=== PATIENT | female | born 1950 | race Caucasian/White ===

== ENCOUNTER 2017-04-20 08:40 | Outpatient (CLI) | payer OTHER ==
[~2017-04-20 08:40] MED LIST: ATENOLOL25 GM; CARDIZEM LA180 MG; ENALAPRIL MALEA10 MG; OSEL75CA; OSEL75CA PO; TRAMADOL HCL-AP1 TAB PO; XARELTO20 MG PO
== END 2017-04-20 08:46 | disposition home or self-care (01) ==
LOC: LAB 08:40
DX: I10 Essential (primary) hypertension (principal); E03.8 Other specified hypothyroidism; E78.4 Other hyperlipidemia; D64.89 Other specified anemias; D63.0 Anemia in neoplastic disease; C18.5 Malignant neoplasm of splenic flexure; J41.0 Simple chronic bronchitis; J45.20 Mild intermittent asthma, uncomplicated; I48.2 Chronic atrial fibrillation; Z79.01 Long term (current) use of anticoagulants; D61.810 Antineoplastic chemotherapy induced pancytopenia; Z92.21 Personal history of antineoplastic chemotherapy; C34.91 Malignant neoplasm of unspecified part of right bronchus or lung; N60.19 Diffuse cystic mastopathy of unspecified breast; D50.8 Other iron deficiency anemias; R97.0 Elevated carcinoembryonic antigen [CEA]; D64.81 Anemia due to antineoplastic chemotherapy

== ENCOUNTER 2017-04-22 13:02 | Outpatient (CLI) | payer OTHER | END 2017-04-22 13:05 | disposition home or self-care (01) | LOC: LAB 13:02 | DX: I10 Essential (primary) hypertension (principal); E03.8 Other specified hypothyroidism; E78.4 Other hyperlipidemia; D64.89 Other specified anemias; D63.0 Anemia in neoplastic disease; C18.5 Malignant neoplasm of splenic flexure; J41.0 Simple chronic bronchitis; J45.20 Mild intermittent asthma, uncomplicated; I48.2 Chronic atrial fibrillation; Z79.01 Long term (current) use of anticoagulants; D61.810 Antineoplastic chemotherapy induced pancytopenia; Z92.21 Personal history of antineoplastic chemotherapy; D64.81 Anemia due to antineoplastic chemotherapy; C34.91 Malignant neoplasm of unspecified part of right bronchus or lung; N60.19 Diffuse cystic mastopathy of unspecified breast; D50.8 Other iron deficiency anemias; R97.0 Elevated carcinoembryonic antigen [CEA] ==

== ENCOUNTER 2017-04-26 08:19 | Outpatient (CLI) | payer OTHER | END 2017-04-26 08:23 | disposition home or self-care (01) | LOC: LAB 08:19 | DX: C34.91 Malignant neoplasm of unspecified part of right bronchus or lung (principal); C18.5 Malignant neoplasm of splenic flexure; R97.0 Elevated carcinoembryonic antigen [CEA] ==

== ENCOUNTER 2017-05-09 09:11 | Outpatient (CLI) | payer OTHER | END 2017-05-09 09:15 | disposition home or self-care (01) | LOC: LAB 09:11 | DX: C18.5 Malignant neoplasm of splenic flexure (principal); C34.91 Malignant neoplasm of unspecified part of right bronchus or lung ==

== ENCOUNTER 2017-05-16 09:53 | Outpatient (CLI) | payer OTHER | END 2017-05-16 09:57 | disposition home or self-care (01) | LOC: LAB 09:53 | DX: D61.810 Antineoplastic chemotherapy induced pancytopenia (principal); C24.9 Malignant neoplasm of biliary tract, unspecified ==

== ENCOUNTER 2017-05-22 10:02 | Outpatient (CLI) | payer OTHER | END 2017-05-22 10:11 | disposition home or self-care (01) | LOC: LAB 10:02 | DX: D70.1 Agranulocytosis secondary to cancer chemotherapy (principal); C34.91 Malignant neoplasm of unspecified part of right bronchus or lung ==

== ENCOUNTER → 2017-05-28 12:24 | Outpatient (CLI) | payer OTHER | END | disposition home or self-care (01) | LOC: LAB 12:24 | DX: C34.91 Malignant neoplasm of unspecified part of right bronchus or lung (principal) ==

== ENCOUNTER 2017-06-08 09:35 | Outpatient (CLI) | payer OTHER | END 2017-06-08 09:43 | disposition home or self-care (01) | LOC: LAB 09:35 | DX: C34.91 Malignant neoplasm of unspecified part of right bronchus or lung (principal); C18.5 Malignant neoplasm of splenic flexure; R97.0 Elevated carcinoembryonic antigen [CEA]; Z85.038 Personal history of other malignant neoplasm of large intestine; D64.81 Anemia due to antineoplastic chemotherapy; D63.0 Anemia in neoplastic disease; T45.1X5A Adverse effect of antineoplastic and immunosuppressive drugs, initial encounter; L27.9 Dermatitis due to unspecified substance taken internally; J41.0 Simple chronic bronchitis; J45.20 Mild intermittent asthma, uncomplicated; I48.2 Chronic atrial fibrillation; Z79.01 Long term (current) use of anticoagulants; N60.19 Diffuse cystic mastopathy of unspecified breast; I10 Essential (primary) hypertension; E03.8 Other specified hypothyroidism; Z92.21 Personal history of antineoplastic chemotherapy; E78.4 Other hyperlipidemia; D69.59 Other secondary thrombocytopenia; D50.8 Other iron deficiency anemias; D51.8 Other vitamin B12 deficiency anemias ==

== ENCOUNTER 2017-06-19 10:58 | Outpatient (CLI) | payer OTHER | END 2017-06-19 11:03 | disposition home or self-care (01) | LOC: LAB 10:58 | DX: C34.91 Malignant neoplasm of unspecified part of right bronchus or lung (principal) ==

== ENCOUNTER 2017-06-29 08:59 | Outpatient (CLI) | payer OTHER | END 2017-06-29 09:06 | disposition home or self-care (01) | LOC: LAB 08:59 | DX: C34.91 Malignant neoplasm of unspecified part of right bronchus or lung (principal); C18.5 Malignant neoplasm of splenic flexure; D64.81 Anemia due to antineoplastic chemotherapy; D63.0 Anemia in neoplastic disease; T45.1X5A Adverse effect of antineoplastic and immunosuppressive drugs, initial encounter; L27.9 Dermatitis due to unspecified substance taken internally; J41.0 Simple chronic bronchitis; J45.20 Mild intermittent asthma, uncomplicated; I48.2 Chronic atrial fibrillation; I10 Essential (primary) hypertension; N60.19 Diffuse cystic mastopathy of unspecified breast; E03.8 Other specified hypothyroidism; E78.4 Other hyperlipidemia; D69.59 Other secondary thrombocytopenia; D70.1 Agranulocytosis secondary to cancer chemotherapy; R97.0 Elevated carcinoembryonic antigen [CEA]; Z85.038 Personal history of other malignant neoplasm of large intestine; Z92.21 Personal history of antineoplastic chemotherapy ==

== ENCOUNTER 2017-07-19 08:43 | Outpatient (CLI) | payer OTHER | END 2017-07-19 08:58 | disposition home or self-care (01) | LOC: LAB 08:43 | DX: C34.91 Malignant neoplasm of unspecified part of right bronchus or lung (principal); R82.79 Other abnormal findings on microbiological examination of urine; C18.5 Malignant neoplasm of splenic flexure; R97.0 Elevated carcinoembryonic antigen [CEA]; Z85.038 Personal history of other malignant neoplasm of large intestine; D64.81 Anemia due to antineoplastic chemotherapy; D63.0 Anemia in neoplastic disease; T45.1X5A Adverse effect of antineoplastic and immunosuppressive drugs, initial encounter; L27.9 Dermatitis due to unspecified substance taken internally; J41.0 Simple chronic bronchitis; J45.20 Mild intermittent asthma, uncomplicated; I48.2 Chronic atrial fibrillation; Z79.01 Long term (current) use of anticoagulants; N60.19 Diffuse cystic mastopathy of unspecified breast; I10 Essential (primary) hypertension; E03.8 Other specified hypothyroidism; Z92.21 Personal history of antineoplastic chemotherapy; D69.59 Other secondary thrombocytopenia; D70.1 Agranulocytosis secondary to cancer chemotherapy; D68.8 Other specified coagulation defects; I47.1 Supraventricular tachycardia; I48.91 Unspecified atrial fibrillation; E04.2 Nontoxic multinodular goiter; K57.30 Diverticulosis of large intestine without perforation or abscess without bleeding; K80.20 Calculus of gallbladder without cholecystitis without obstruction; N18.3 Chronic kidney disease, stage 3 (moderate); R31.9 Hematuria, unspecified; C34.90 Malignant neoplasm of unspecified part of unspecified bronchus or lung; M19.90 Unspecified osteoarthritis, unspecified site; M47.896 Other spondylosis, lumbar region; J44.9 Chronic obstructive pulmonary disease, unspecified; E55.9 Vitamin D deficiency, unspecified; E83.42 Hypomagnesemia; Z93.3 Colostomy status; Z68.34 Body mass index [BMI] 34.0-34.9, adult; N39.0 Urinary tract infection, site not specified; R73.01 Impaired fasting glucose; E78.4 Other hyperlipidemia; R80.8 Other proteinuria; C18.8 Malignant neoplasm of overlapping sites of colon ==

== ENCOUNTER 2017-08-14 08:27 | Outpatient (CLI) | payer OTHER | END 2017-08-14 15:45 | disposition home or self-care (01) | LOC: TOM 08:27 | DX: C34.91 Malignant neoplasm of unspecified part of right bronchus or lung (principal); C18.5 Malignant neoplasm of splenic flexure; R97.0 Elevated carcinoembryonic antigen [CEA]; Z85.038 Personal history of other malignant neoplasm of large intestine; D64.81 Anemia due to antineoplastic chemotherapy; D63.0 Anemia in neoplastic disease; T45.1X5A Adverse effect of antineoplastic and immunosuppressive drugs, initial encounter; L27.9 Dermatitis due to unspecified substance taken internally; J41.0 Simple chronic bronchitis; J45.20 Mild intermittent asthma, uncomplicated; I48.2 Chronic atrial fibrillation; Z79.01 Long term (current) use of anticoagulants; N60.19 Diffuse cystic mastopathy of unspecified breast; I10 Essential (primary) hypertension; E03.8 Other specified hypothyroidism; Z92.21 Personal history of antineoplastic chemotherapy; E78.4 Other hyperlipidemia; D69.59 Other secondary thrombocytopenia | CPT/HCPCS: 71260; Q9965 ==

== ENCOUNTER → 2017-08-15 | Outpatient (CLI) | payer OTHER | END | disposition home or self-care (01) | LOC: NUCLEAR 08-01 11:00 | DX: M81.0 Age-related osteoporosis without current pathological fracture (principal); I10 Essential (primary) hypertension; I47.1 Supraventricular tachycardia; I48.91 Unspecified atrial fibrillation; E04.2 Nontoxic multinodular goiter; E03.8 Other specified hypothyroidism; K57.30 Diverticulosis of large intestine without perforation or abscess without bleeding; K80.20 Calculus of gallbladder without cholecystitis without obstruction; R80.8 Other proteinuria; N18.3 Chronic kidney disease, stage 3 (moderate); R31.9 Hematuria, unspecified; C18.9 Malignant neoplasm of colon, unspecified; C34.90 Malignant neoplasm of unspecified part of unspecified bronchus or lung; M19.90 Unspecified osteoarthritis, unspecified site; M47.896 Other spondylosis, lumbar region; J44.9 Chronic obstructive pulmonary disease, unspecified; E55.9 Vitamin D deficiency, unspecified; Z93.3 Colostomy status; Z79.01 Long term (current) use of anticoagulants; Z68.37 Body mass index [BMI] 37.0-37.9, adult ==

== ENCOUNTER 2017-08-21 08:59 | Outpatient (CLI) | payer OTHER | END 2017-08-21 09:05 | disposition home or self-care (01) | LOC: LAB 08:59 | DX: C34.91 Malignant neoplasm of unspecified part of right bronchus or lung (principal); C18.5 Malignant neoplasm of splenic flexure; R97.0 Elevated carcinoembryonic antigen [CEA]; Z85.038 Personal history of other malignant neoplasm of large intestine; D64.81 Anemia due to antineoplastic chemotherapy; D63.0 Anemia in neoplastic disease; T45.1X5A Adverse effect of antineoplastic and immunosuppressive drugs, initial encounter; L27.8 Dermatitis due to other substances taken internally; J41.0 Simple chronic bronchitis; J45.20 Mild intermittent asthma, uncomplicated; I48.2 Chronic atrial fibrillation; Z79.01 Long term (current) use of anticoagulants; N60.19 Diffuse cystic mastopathy of unspecified breast; I10 Essential (primary) hypertension; E03.8 Other specified hypothyroidism; Z92.21 Personal history of antineoplastic chemotherapy; E78.4 Other hyperlipidemia; D69.59 Other secondary thrombocytopenia; D70.1 Agranulocytosis secondary to cancer chemotherapy; D50.8 Other iron deficiency anemias ==

== ENCOUNTER 2017-08-26 12:21 | Outpatient (CLI) | payer OTHER | END 2017-08-26 12:25 | disposition home or self-care (01) | LOC: LAB 12:21 | DX: C34.91 Malignant neoplasm of unspecified part of right bronchus or lung (principal); C18.5 Malignant neoplasm of splenic flexure; R97.0 Elevated carcinoembryonic antigen [CEA]; Z85.038 Personal history of other malignant neoplasm of large intestine; D64.81 Anemia due to antineoplastic chemotherapy; D63.0 Anemia in neoplastic disease; T45.1X5A Adverse effect of antineoplastic and immunosuppressive drugs, initial encounter; L27.9 Dermatitis due to unspecified substance taken internally; J41.0 Simple chronic bronchitis; J45.20 Mild intermittent asthma, uncomplicated; I48.2 Chronic atrial fibrillation; Z79.01 Long term (current) use of anticoagulants; N60.19 Diffuse cystic mastopathy of unspecified breast; I10 Essential (primary) hypertension; E03.8 Other specified hypothyroidism; Z92.21 Personal history of antineoplastic chemotherapy; D69.59 Other secondary thrombocytopenia; D70.1 Agranulocytosis secondary to cancer chemotherapy; E78.4 Other hyperlipidemia ==

== ENCOUNTER → 2017-09-04 12:38 | Outpatient (CLI) | payer OTHER | END | disposition home or self-care (01) | LOC: LAB 12:38 | DX: D64.81 Anemia due to antineoplastic chemotherapy (principal); C34.91 Malignant neoplasm of unspecified part of right bronchus or lung ==

== ENCOUNTER → 2017-09-24 08:24 | Outpatient (CLI) | payer OTHER | END | disposition home or self-care (01) | LOC: LAB 08:24 | DX: D64.81 Anemia due to antineoplastic chemotherapy (principal); D63.0 Anemia in neoplastic disease; C34.91 Malignant neoplasm of unspecified part of right bronchus or lung ==

== ENCOUNTER 2017-10-10 09:29 | Outpatient (CLI) | payer OTHER | END 2017-10-10 09:30 | disposition home or self-care (01) | LOC: LAB 09:29 | DX: C34.91 Malignant neoplasm of unspecified part of right bronchus or lung (principal); D64.81 Anemia due to antineoplastic chemotherapy ==

== ENCOUNTER 2017-10-19 09:10 | Outpatient (CLI) | payer OTHER | END 2017-10-19 09:16 | disposition home or self-care (01) | LOC: LAB 09:10 | DX: D64.81 Anemia due to antineoplastic chemotherapy (principal); C34.91 Malignant neoplasm of unspecified part of right bronchus or lung ==

== ENCOUNTER 2017-11-14 08:51 | Outpatient (CLI) | payer OTHER | END 2017-11-14 08:58 | disposition home or self-care (01) | LOC: LAB 08:51 | DX: C34.91 Malignant neoplasm of unspecified part of right bronchus or lung (principal); C18.5 Malignant neoplasm of splenic flexure; R97.0 Elevated carcinoembryonic antigen [CEA]; Z85.038 Personal history of other malignant neoplasm of large intestine; D64.81 Anemia due to antineoplastic chemotherapy; D63.0 Anemia in neoplastic disease; T45.1X5A Adverse effect of antineoplastic and immunosuppressive drugs, initial encounter; L27.8 Dermatitis due to other substances taken internally; J41.0 Simple chronic bronchitis; J45.20 Mild intermittent asthma, uncomplicated; I48.2 Chronic atrial fibrillation; Z79.01 Long term (current) use of anticoagulants; N60.12 Diffuse cystic mastopathy of left breast; N60.11 Diffuse cystic mastopathy of right breast; I10 Essential (primary) hypertension; E03.8 Other specified hypothyroidism; Z92.21 Personal history of antineoplastic chemotherapy; E78.4 Other hyperlipidemia; D70.1 Agranulocytosis secondary to cancer chemotherapy; D50.8 Other iron deficiency anemias; D51.8 Other vitamin B12 deficiency anemias ==

== ENCOUNTER 2017-12-04 07:44 | Outpatient (CLI) | payer OTHER | END 2017-12-04 07:51 | disposition home or self-care (01) | LOC: TOM 07:44 | DX: C34.91 Malignant neoplasm of unspecified part of right bronchus or lung (principal); C18.5 Malignant neoplasm of splenic flexure; R97.0 Elevated carcinoembryonic antigen [CEA]; Z85.038 Personal history of other malignant neoplasm of large intestine; D64.81 Anemia due to antineoplastic chemotherapy; D63.0 Anemia in neoplastic disease; T45.1X5A Adverse effect of antineoplastic and immunosuppressive drugs, initial encounter; L27.9 Dermatitis due to unspecified substance taken internally; J41.0 Simple chronic bronchitis; J45.20 Mild intermittent asthma, uncomplicated; I48.2 Chronic atrial fibrillation; Z79.01 Long term (current) use of anticoagulants; N60.19 Diffuse cystic mastopathy of unspecified breast; I10 Essential (primary) hypertension; E03.8 Other specified hypothyroidism; Z92.21 Personal history of antineoplastic chemotherapy; E78.4 Other hyperlipidemia; D69.59 Other secondary thrombocytopenia; D70.1 Agranulocytosis secondary to cancer chemotherapy | CPT/HCPCS: 71260; Q9965 ==

== ENCOUNTER 2017-12-07 09:12 | Outpatient (CLI) | payer OTHER | END 2017-12-07 09:17 | disposition home or self-care (01) | LOC: LAB 09:12 | DX: C34.91 Malignant neoplasm of unspecified part of right bronchus or lung (principal); C18.5 Malignant neoplasm of splenic flexure; R97.0 Elevated carcinoembryonic antigen [CEA]; Z85.038 Personal history of other malignant neoplasm of large intestine; D64.81 Anemia due to antineoplastic chemotherapy; D63.0 Anemia in neoplastic disease; T45.1X5A Adverse effect of antineoplastic and immunosuppressive drugs, initial encounter; L27.9 Dermatitis due to unspecified substance taken internally; J41.0 Simple chronic bronchitis; J45.20 Mild intermittent asthma, uncomplicated; I48.2 Chronic atrial fibrillation; Z79.01 Long term (current) use of anticoagulants; N60.19 Diffuse cystic mastopathy of unspecified breast; I10 Essential (primary) hypertension; E03.8 Other specified hypothyroidism; Z92.21 Personal history of antineoplastic chemotherapy; E78.4 Other hyperlipidemia; D69.59 Other secondary thrombocytopenia; D70.1 Agranulocytosis secondary to cancer chemotherapy; D50.8 Other iron deficiency anemias; D51.9 Vitamin B12 deficiency anemia, unspecified ==

== ENCOUNTER 2017-12-26 08:06 | Outpatient (CLI) | payer OTHER | END 2017-12-26 08:11 | disposition home or self-care (01) | LOC: RAD 08:06 | DX: J45.31 Mild persistent asthma with (acute) exacerbation (principal); C34.30 Malignant neoplasm of lower lobe, unspecified bronchus or lung ==

== ENCOUNTER 2018-01-31 10:23 | Outpatient (CLI) | payer OTHER | END 2018-01-31 10:30 | disposition home or self-care (01) | LOC: LAB 10:23 | DX: C34.91 Malignant neoplasm of unspecified part of right bronchus or lung (principal); C18.5 Malignant neoplasm of splenic flexure; R97.0 Elevated carcinoembryonic antigen [CEA]; Z85.038 Personal history of other malignant neoplasm of large intestine; D64.81 Anemia due to antineoplastic chemotherapy; D63.0 Anemia in neoplastic disease; T45.1X5A Adverse effect of antineoplastic and immunosuppressive drugs, initial encounter; L27.8 Dermatitis due to other substances taken internally; J41.0 Simple chronic bronchitis; J45.20 Mild intermittent asthma, uncomplicated; I48.2 Chronic atrial fibrillation; Z79.01 Long term (current) use of anticoagulants; N60.11 Diffuse cystic mastopathy of right breast; N60.12 Diffuse cystic mastopathy of left breast; I10 Essential (primary) hypertension; E03.8 Other specified hypothyroidism; Z92.21 Personal history of antineoplastic chemotherapy; E78.49 Other hyperlipidemia; D69.59 Other secondary thrombocytopenia; D70.1 Agranulocytosis secondary to cancer chemotherapy; D50.8 Other iron deficiency anemias ==

== ENCOUNTER 2018-02-18 12:16 | Outpatient (CLI) | payer OTHER | END 2018-02-18 12:21 | disposition home or self-care (01) | LOC: RAD 12:16 | DX: M54.2 Cervicalgia (principal); C34.91 Malignant neoplasm of unspecified part of right bronchus or lung; C18.5 Malignant neoplasm of splenic flexure; R97.0 Elevated carcinoembryonic antigen [CEA]; Z85.038 Personal history of other malignant neoplasm of large intestine; D64.81 Anemia due to antineoplastic chemotherapy; D63.0 Anemia in neoplastic disease; T45.1X5A Adverse effect of antineoplastic and immunosuppressive drugs, initial encounter; L27.8 Dermatitis due to other substances taken internally; J41.0 Simple chronic bronchitis; J45.20 Mild intermittent asthma, uncomplicated; I48.2 Chronic atrial fibrillation; Z79.01 Long term (current) use of anticoagulants; I10 Essential (primary) hypertension; E03.8 Other specified hypothyroidism; Z92.21 Personal history of antineoplastic chemotherapy; E78.49 Other hyperlipidemia; D69.59 Other secondary thrombocytopenia; D70.1 Agranulocytosis secondary to cancer chemotherapy ==

== ENCOUNTER 2018-03-17 09:48 | Outpatient (CLI) | payer OTHER | END 2018-03-17 09:57 | disposition home or self-care (01) | LOC: LAB 09:48 | DX: C34.91 Malignant neoplasm of unspecified part of right bronchus or lung (principal); C18.5 Malignant neoplasm of splenic flexure; R97.0 Elevated carcinoembryonic antigen [CEA]; Z85.038 Personal history of other malignant neoplasm of large intestine; D64.81 Anemia due to antineoplastic chemotherapy; D63.0 Anemia in neoplastic disease; T45.1X5A Adverse effect of antineoplastic and immunosuppressive drugs, initial encounter; L27.9 Dermatitis due to unspecified substance taken internally; J41.0 Simple chronic bronchitis; J45.20 Mild intermittent asthma, uncomplicated; I48.2 Chronic atrial fibrillation; Z79.01 Long term (current) use of anticoagulants; I10 Essential (primary) hypertension; Z92.21 Personal history of antineoplastic chemotherapy; D69.59 Other secondary thrombocytopenia; D70.1 Agranulocytosis secondary to cancer chemotherapy; E03.8 Other specified hypothyroidism; E78.49 Other hyperlipidemia; N64.89 Other specified disorders of breast ==

== ENCOUNTER 2018-04-10 08:32 | Outpatient (CLI) | payer OTHER | END 2018-04-10 08:38 | disposition home or self-care (01) | LOC: LAB 08:32 | DX: C34.91 Malignant neoplasm of unspecified part of right bronchus or lung (principal); C18.5 Malignant neoplasm of splenic flexure; R97.0 Elevated carcinoembryonic antigen [CEA]; Z85.038 Personal history of other malignant neoplasm of large intestine; D64.81 Anemia due to antineoplastic chemotherapy; D63.0 Anemia in neoplastic disease; T45.1X5A Adverse effect of antineoplastic and immunosuppressive drugs, initial encounter; L27.8 Dermatitis due to other substances taken internally; J41.0 Simple chronic bronchitis; J45.20 Mild intermittent asthma, uncomplicated; I48.2 Chronic atrial fibrillation; Z79.01 Long term (current) use of anticoagulants; N60.11 Diffuse cystic mastopathy of right breast; N60.12 Diffuse cystic mastopathy of left breast; I10 Essential (primary) hypertension; E03.8 Other specified hypothyroidism; Z92.21 Personal history of antineoplastic chemotherapy; E78.49 Other hyperlipidemia; D69.59 Other secondary thrombocytopenia; D70.1 Agranulocytosis secondary to cancer chemotherapy; D50.8 Other iron deficiency anemias; D51.8 Other vitamin B12 deficiency anemias ==

== ENCOUNTER 2018-04-25 08:31 | Outpatient (CLI) | payer OTHER | END 2018-04-25 08:47 | disposition home or self-care (01) | LOC: LAB 08:31 | DX: I10 Essential (primary) hypertension (principal); I47.1 Supraventricular tachycardia; I48.91 Unspecified atrial fibrillation; E04.2 Nontoxic multinodular goiter; E03.8 Other specified hypothyroidism; K57.30 Diverticulosis of large intestine without perforation or abscess without bleeding; K80.20 Calculus of gallbladder without cholecystitis without obstruction; R80.8 Other proteinuria; N18.3 Chronic kidney disease, stage 3 (moderate); R31.9 Hematuria, unspecified; C18.8 Malignant neoplasm of overlapping sites of colon; C34.90 Malignant neoplasm of unspecified part of unspecified bronchus or lung; M19.90 Unspecified osteoarthritis, unspecified site; M47.896 Other spondylosis, lumbar region; J44.9 Chronic obstructive pulmonary disease, unspecified; E55.9 Vitamin D deficiency, unspecified; E83.42 Hypomagnesemia; Z93.3 Colostomy status; Z68.32 Body mass index [BMI] 32.0-32.9, adult; Z79.01 Long term (current) use of anticoagulants; E78.2 Mixed hyperlipidemia ==

== ENCOUNTER 2018-05-20 07:09 | Outpatient (CLI) | payer OTHER | END 2018-05-20 07:15 | disposition home or self-care (01) | LOC: LAB 07:09 | DX: C34.91 Malignant neoplasm of unspecified part of right bronchus or lung (principal); C18.5 Malignant neoplasm of splenic flexure; R97.0 Elevated carcinoembryonic antigen [CEA]; Z85.038 Personal history of other malignant neoplasm of large intestine; D64.81 Anemia due to antineoplastic chemotherapy; D63.0 Anemia in neoplastic disease; T45.1X5A Adverse effect of antineoplastic and immunosuppressive drugs, initial encounter; L27.9 Dermatitis due to unspecified substance taken internally; J41.0 Simple chronic bronchitis; J45.20 Mild intermittent asthma, uncomplicated; I48.2 Chronic atrial fibrillation; Z79.01 Long term (current) use of anticoagulants; N60.19 Diffuse cystic mastopathy of unspecified breast; I10 Essential (primary) hypertension; E03.8 Other specified hypothyroidism; Z92.21 Personal history of antineoplastic chemotherapy; E78.5 Hyperlipidemia, unspecified; D69.59 Other secondary thrombocytopenia; D70.1 Agranulocytosis secondary to cancer chemotherapy; R97.8 Other abnormal tumor markers; D50.8 Other iron deficiency anemias; D51.8 Other vitamin B12 deficiency anemias ==

== ENCOUNTER 2018-06-10 08:19 | Outpatient (CLI) | payer OTHER | END 2018-06-10 08:34 | disposition home or self-care (01) | LOC: LAB 08:19 | DX: C34.91 Malignant neoplasm of unspecified part of right bronchus or lung (principal); C18.5 Malignant neoplasm of splenic flexure; R97.0 Elevated carcinoembryonic antigen [CEA]; Z85.038 Personal history of other malignant neoplasm of large intestine; D64.81 Anemia due to antineoplastic chemotherapy; D63.0 Anemia in neoplastic disease; T45.1X5A Adverse effect of antineoplastic and immunosuppressive drugs, initial encounter; L27.9 Dermatitis due to unspecified substance taken internally; J41.0 Simple chronic bronchitis; J45.20 Mild intermittent asthma, uncomplicated; I48.2 Chronic atrial fibrillation; Z79.01 Long term (current) use of anticoagulants; N60.19 Diffuse cystic mastopathy of unspecified breast; I10 Essential (primary) hypertension; E03.8 Other specified hypothyroidism; Z92.21 Personal history of antineoplastic chemotherapy; D69.59 Other secondary thrombocytopenia; D70.1 Agranulocytosis secondary to cancer chemotherapy; E78.49 Other hyperlipidemia ==

== ENCOUNTER 2018-06-20 08:15 | Outpatient (CLI) | payer OTHER | END 2018-06-20 14:55 | disposition home or self-care (01) | LOC: LAB 08:15 | DX: C34.91 Malignant neoplasm of unspecified part of right bronchus or lung (principal); D63.0 Anemia in neoplastic disease ==

== ENCOUNTER 2018-07-02 08:29 | Outpatient (CLI) | payer OTHER | END 2018-07-02 08:37 | disposition home or self-care (01) | LOC: LAB 08:29 | DX: C34.91 Malignant neoplasm of unspecified part of right bronchus or lung (principal); C18.5 Malignant neoplasm of splenic flexure; R97.0 Elevated carcinoembryonic antigen [CEA]; Z85.038 Personal history of other malignant neoplasm of large intestine; D64.81 Anemia due to antineoplastic chemotherapy; D63.0 Anemia in neoplastic disease; T45.1X5A Adverse effect of antineoplastic and immunosuppressive drugs, initial encounter; L27.8 Dermatitis due to other substances taken internally; J41.0 Simple chronic bronchitis; J45.20 Mild intermittent asthma, uncomplicated; I48.2 Chronic atrial fibrillation; Z79.01 Long term (current) use of anticoagulants; N60.19 Diffuse cystic mastopathy of unspecified breast; I10 Essential (primary) hypertension; E03.8 Other specified hypothyroidism; Z92.21 Personal history of antineoplastic chemotherapy; E78.49 Other hyperlipidemia; D69.59 Other secondary thrombocytopenia; D70.1 Agranulocytosis secondary to cancer chemotherapy; R97.8 Other abnormal tumor markers ==

== ENCOUNTER 2018-07-17 08:29 | Outpatient (CLI) | payer OTHER | END 2018-07-17 08:30 | disposition home or self-care (01) | LOC: LAB 08:29 | DX: E03.8 Other specified hypothyroidism (principal); C34.91 Malignant neoplasm of unspecified part of right bronchus or lung; C18.5 Malignant neoplasm of splenic flexure; R97.0 Elevated carcinoembryonic antigen [CEA]; Z85.038 Personal history of other malignant neoplasm of large intestine; D64.81 Anemia due to antineoplastic chemotherapy; D63.0 Anemia in neoplastic disease; T45.1X5A Adverse effect of antineoplastic and immunosuppressive drugs, initial encounter; L27.9 Dermatitis due to unspecified substance taken internally; J41.0 Simple chronic bronchitis; J45.20 Mild intermittent asthma, uncomplicated; I48.2 Chronic atrial fibrillation; Z79.01 Long term (current) use of anticoagulants; N60.19 Diffuse cystic mastopathy of unspecified breast; I10 Essential (primary) hypertension; Z92.21 Personal history of antineoplastic chemotherapy; E78.49 Other hyperlipidemia; D69.59 Other secondary thrombocytopenia; D70.1 Agranulocytosis secondary to cancer chemotherapy; D50.8 Other iron deficiency anemias; D51.8 Other vitamin B12 deficiency anemias; K90.89 Other intestinal malabsorption ==

== ENCOUNTER 2018-07-29 08:09 | Outpatient (CLI) | payer OTHER | END 2018-07-29 08:25 | disposition home or self-care (01) | LOC: LAB 08:09 | DX: I47.1 Supraventricular tachycardia (principal); I10 Essential (primary) hypertension; I48.91 Unspecified atrial fibrillation; E04.2 Nontoxic multinodular goiter; E03.8 Other specified hypothyroidism; K57.30 Diverticulosis of large intestine without perforation or abscess without bleeding; K80.20 Calculus of gallbladder without cholecystitis without obstruction; R80.8 Other proteinuria; N18.3 Chronic kidney disease, stage 3 (moderate); R31.9 Hematuria, unspecified; C18.9 Malignant neoplasm of colon, unspecified; C34.90 Malignant neoplasm of unspecified part of unspecified bronchus or lung; M19.90 Unspecified osteoarthritis, unspecified site; M47.896 Other spondylosis, lumbar region; J44.9 Chronic obstructive pulmonary disease, unspecified; E55.9 Vitamin D deficiency, unspecified; Z93.3 Colostomy status; Z79.01 Long term (current) use of anticoagulants; Z68.32 Body mass index [BMI] 32.0-32.9, adult; N39.0 Urinary tract infection, site not specified ==

== ENCOUNTER 2018-08-14 07:59 | Outpatient (CLI) | payer OTHER | END 2018-08-14 08:06 | disposition home or self-care (01) | LOC: LAB 07:59 | DX: C34.91 Malignant neoplasm of unspecified part of right bronchus or lung (principal); C18.5 Malignant neoplasm of splenic flexure; R97.0 Elevated carcinoembryonic antigen [CEA]; Z85.038 Personal history of other malignant neoplasm of large intestine; D64.81 Anemia due to antineoplastic chemotherapy; D63.0 Anemia in neoplastic disease; T45.1X5A Adverse effect of antineoplastic and immunosuppressive drugs, initial encounter; L27.9 Dermatitis due to unspecified substance taken internally; J41.0 Simple chronic bronchitis; J45.20 Mild intermittent asthma, uncomplicated; I48.2 Chronic atrial fibrillation; Z79.01 Long term (current) use of anticoagulants; N60.19 Diffuse cystic mastopathy of unspecified breast; I10 Essential (primary) hypertension; E03.8 Other specified hypothyroidism; Z92.21 Personal history of antineoplastic chemotherapy; E78.49 Other hyperlipidemia; D69.59 Other secondary thrombocytopenia; D70.1 Agranulocytosis secondary to cancer chemotherapy; D50.8 Other iron deficiency anemias ==

== ENCOUNTER → 2018-09-24 09:01 | Outpatient (CLI) | payer OTHER | END | disposition home or self-care (01) | LOC: LAB 09:01 | DX: E03.8 Other specified hypothyroidism (principal); C34.91 Malignant neoplasm of unspecified part of right bronchus or lung; C18.5 Malignant neoplasm of splenic flexure; R97.0 Elevated carcinoembryonic antigen [CEA]; Z85.038 Personal history of other malignant neoplasm of large intestine; D64.81 Anemia due to antineoplastic chemotherapy; D63.0 Anemia in neoplastic disease; T45.1X5A Adverse effect of antineoplastic and immunosuppressive drugs, initial encounter; L27.8 Dermatitis due to other substances taken internally; J41.0 Simple chronic bronchitis; J45.20 Mild intermittent asthma, uncomplicated; I48.2 Chronic atrial fibrillation; Z79.01 Long term (current) use of anticoagulants; N60.19 Diffuse cystic mastopathy of unspecified breast; I10 Essential (primary) hypertension; Z92.21 Personal history of antineoplastic chemotherapy; E78.49 Other hyperlipidemia; D69.59 Other secondary thrombocytopenia; D70.1 Agranulocytosis secondary to cancer chemotherapy ==

== ENCOUNTER → 2018-10-14 09:25 | Outpatient (CLI) | payer OTHER | END | disposition home or self-care (01) | LOC: LAB 09:25 | DX: E03.8 Other specified hypothyroidism (principal); C34.91 Malignant neoplasm of unspecified part of right bronchus or lung; C18.5 Malignant neoplasm of splenic flexure; R97.0 Elevated carcinoembryonic antigen [CEA]; Z85.038 Personal history of other malignant neoplasm of large intestine; D64.81 Anemia due to antineoplastic chemotherapy; D63.0 Anemia in neoplastic disease; T45.1X5A Adverse effect of antineoplastic and immunosuppressive drugs, initial encounter; L27.8 Dermatitis due to other substances taken internally; J41.0 Simple chronic bronchitis; J45.20 Mild intermittent asthma, uncomplicated; I48.2 Chronic atrial fibrillation; Z79.01 Long term (current) use of anticoagulants; N60.19 Diffuse cystic mastopathy of unspecified breast; I10 Essential (primary) hypertension; Z92.21 Personal history of antineoplastic chemotherapy; E78.49 Other hyperlipidemia; D69.59 Other secondary thrombocytopenia; D70.1 Agranulocytosis secondary to cancer chemotherapy; D50.8 Other iron deficiency anemias; D51.8 Other vitamin B12 deficiency anemias ==

== ENCOUNTER 2018-10-28 10:13 | Outpatient (CLI) | payer OTHER | END 2018-10-28 10:20 | disposition home or self-care (01) | LOC: MAMO-SONO 10:13 | DX: C34.91 Malignant neoplasm of unspecified part of right bronchus or lung (principal); C18.5 Malignant neoplasm of splenic flexure; R97.0 Elevated carcinoembryonic antigen [CEA]; Z85.038 Personal history of other malignant neoplasm of large intestine; D64.81 Anemia due to antineoplastic chemotherapy; D63.0 Anemia in neoplastic disease; T45.1X5A Adverse effect of antineoplastic and immunosuppressive drugs, initial encounter; L27.8 Dermatitis due to other substances taken internally; J41.0 Simple chronic bronchitis; J45.20 Mild intermittent asthma, uncomplicated; I48.2 Chronic atrial fibrillation; Z79.01 Long term (current) use of anticoagulants; N60.19 Diffuse cystic mastopathy of unspecified breast; I10 Essential (primary) hypertension; E03.8 Other specified hypothyroidism; Z92.21 Personal history of antineoplastic chemotherapy; E78.49 Other hyperlipidemia; D69.59 Other secondary thrombocytopenia; D70.1 Agranulocytosis secondary to cancer chemotherapy; Z12.31 Encounter for screening mammogram for malignant neoplasm of breast; N63.10 Unspecified lump in the right breast, unspecified quadrant; N63.20 Unspecified lump in the left breast, unspecified quadrant; Z87.898 Personal history of other specified conditions ==

== ENCOUNTER 2018-11-06 07:58 | Outpatient (CLI) | payer OTHER | END 2018-11-06 08:06 | disposition home or self-care (01) | LOC: LAB 07:58 | DX: E78.49 Other hyperlipidemia (principal); C34.91 Malignant neoplasm of unspecified part of right bronchus or lung; C18.5 Malignant neoplasm of splenic flexure; R97.0 Elevated carcinoembryonic antigen [CEA]; Z85.038 Personal history of other malignant neoplasm of large intestine; D64.81 Anemia due to antineoplastic chemotherapy; D63.0 Anemia in neoplastic disease; T45.1X5A Adverse effect of antineoplastic and immunosuppressive drugs, initial encounter; L27.9 Dermatitis due to unspecified substance taken internally; J41.0 Simple chronic bronchitis; J45.20 Mild intermittent asthma, uncomplicated; I48.2 Chronic atrial fibrillation; Z79.01 Long term (current) use of anticoagulants; N60.19 Diffuse cystic mastopathy of unspecified breast; I10 Essential (primary) hypertension; E03.8 Other specified hypothyroidism; Z92.21 Personal history of antineoplastic chemotherapy; D69.59 Other secondary thrombocytopenia; D70.1 Agranulocytosis secondary to cancer chemotherapy; N63.10 Unspecified lump in the right breast, unspecified quadrant; N63.20 Unspecified lump in the left breast, unspecified quadrant; Z12.31 Encounter for screening mammogram for malignant neoplasm of breast; R97.8 Other abnormal tumor markers ==

== ENCOUNTER 2018-11-28 07:56 | Outpatient (CLI) | payer OTHER | END 2018-11-28 08:04 | disposition home or self-care (01) | LOC: LAB 07:56 | DX: I10 Essential (primary) hypertension (principal); I47.1 Supraventricular tachycardia; I48.91 Unspecified atrial fibrillation; E04.2 Nontoxic multinodular goiter; E03.8 Other specified hypothyroidism; K57.30 Diverticulosis of large intestine without perforation or abscess without bleeding; K80.20 Calculus of gallbladder without cholecystitis without obstruction; R80.8 Other proteinuria; R31.29 Other microscopic hematuria; C18.9 Malignant neoplasm of colon, unspecified; C34.90 Malignant neoplasm of unspecified part of unspecified bronchus or lung; M19.90 Unspecified osteoarthritis, unspecified site; M47.896 Other spondylosis, lumbar region; J44.9 Chronic obstructive pulmonary disease, unspecified; E55.9 Vitamin D deficiency, unspecified; Z93.3 Colostomy status; Z79.01 Long term (current) use of anticoagulants; Z68.33 Body mass index [BMI] 33.0-33.9, adult; E53.8 Deficiency of other specified B group vitamins; N39.0 Urinary tract infection, site not specified ==

== ENCOUNTER 2018-12-12 08:44 | Outpatient (CLI) | payer OTHER | END 2018-12-12 08:53 | disposition home or self-care (01) | LOC: LAB 08:44 | DX: C34.91 Malignant neoplasm of unspecified part of right bronchus or lung (principal); C18.5 Malignant neoplasm of splenic flexure; R97.0 Elevated carcinoembryonic antigen [CEA]; Z85.038 Personal history of other malignant neoplasm of large intestine; D64.81 Anemia due to antineoplastic chemotherapy; D63.0 Anemia in neoplastic disease; T45.1X5A Adverse effect of antineoplastic and immunosuppressive drugs, initial encounter; L27.9 Dermatitis due to unspecified substance taken internally; J41.0 Simple chronic bronchitis; J45.20 Mild intermittent asthma, uncomplicated; I48.2 Chronic atrial fibrillation; Z79.01 Long term (current) use of anticoagulants; N60.19 Diffuse cystic mastopathy of unspecified breast; I10 Essential (primary) hypertension; E03.8 Other specified hypothyroidism; Z92.21 Personal history of antineoplastic chemotherapy; E78.49 Other hyperlipidemia; D69.59 Other secondary thrombocytopenia; D70.1 Agranulocytosis secondary to cancer chemotherapy ==

== ENCOUNTER → 2018-12-24 | Outpatient (CLI) | payer OTHER | END | disposition home or self-care (01) | LOC: TOM 08:15 | DX: C34.91 Malignant neoplasm of unspecified part of right bronchus or lung (principal); C18.5 Malignant neoplasm of splenic flexure; R97.0 Elevated carcinoembryonic antigen [CEA]; Z85.038 Personal history of other malignant neoplasm of large intestine; D64.81 Anemia due to antineoplastic chemotherapy; D63.0 Anemia in neoplastic disease; T45.1X5A Adverse effect of antineoplastic and immunosuppressive drugs, initial encounter; L27.8 Dermatitis due to other substances taken internally; J41.0 Simple chronic bronchitis; J45.20 Mild intermittent asthma, uncomplicated; I48.2 Chronic atrial fibrillation; Z79.01 Long term (current) use of anticoagulants; N60.11 Diffuse cystic mastopathy of right breast; I10 Essential (primary) hypertension; E03.8 Other specified hypothyroidism; Z92.21 Personal history of antineoplastic chemotherapy; D70.1 Agranulocytosis secondary to cancer chemotherapy; Z08 Encounter for follow-up examination after completed treatment for malignant neoplasm | CPT/HCPCS: 71260; Q9965 ==

== ENCOUNTER 2019-01-08 08:51 | Outpatient (CLI) | payer OTHER | END 2019-01-08 09:59 | disposition home or self-care (01) | LOC: LAB 08:51 | DX: C34.91 Malignant neoplasm of unspecified part of right bronchus or lung (principal); C18.5 Malignant neoplasm of splenic flexure; R97.0 Elevated carcinoembryonic antigen [CEA]; Z85.038 Personal history of other malignant neoplasm of large intestine; D64.81 Anemia due to antineoplastic chemotherapy; D63.0 Anemia in neoplastic disease; T45.1X5A Adverse effect of antineoplastic and immunosuppressive drugs, initial encounter; L27.9 Dermatitis due to unspecified substance taken internally; J41.0 Simple chronic bronchitis; J45.20 Mild intermittent asthma, uncomplicated; Z79.01 Long term (current) use of anticoagulants; N60.19 Diffuse cystic mastopathy of unspecified breast; I10 Essential (primary) hypertension; E03.8 Other specified hypothyroidism; Z92.21 Personal history of antineoplastic chemotherapy; E78.49 Other hyperlipidemia; D69.59 Other secondary thrombocytopenia; D70.1 Agranulocytosis secondary to cancer chemotherapy ==

== ENCOUNTER 2019-01-22 07:46 | Outpatient (CLI) | payer OTHER | END 2019-01-22 07:51 | disposition home or self-care (01) | LOC: LAB 07:46 | DX: C34.91 Malignant neoplasm of unspecified part of right bronchus or lung (principal); C18.5 Malignant neoplasm of splenic flexure; R97.0 Elevated carcinoembryonic antigen [CEA]; Z85.038 Personal history of other malignant neoplasm of large intestine; D64.81 Anemia due to antineoplastic chemotherapy; D63.0 Anemia in neoplastic disease; T45.1X5A Adverse effect of antineoplastic and immunosuppressive drugs, initial encounter; L27.8 Dermatitis due to other substances taken internally; J41.0 Simple chronic bronchitis; J45.20 Mild intermittent asthma, uncomplicated; Z79.01 Long term (current) use of anticoagulants; N60.19 Diffuse cystic mastopathy of unspecified breast; I10 Essential (primary) hypertension; E03.8 Other specified hypothyroidism; Z92.21 Personal history of antineoplastic chemotherapy; E78.49 Other hyperlipidemia; D69.59 Other secondary thrombocytopenia; D70.1 Agranulocytosis secondary to cancer chemotherapy; D50.8 Other iron deficiency anemias; D51.8 Other vitamin B12 deficiency anemias ==

== ENCOUNTER 2019-02-13 06:56 | Outpatient (CLI) | payer OTHER | END 2019-02-13 07:03 | disposition home or self-care (01) | LOC: LAB 06:56 | DX: C34.91 Malignant neoplasm of unspecified part of right bronchus or lung (principal); C18.5 Malignant neoplasm of splenic flexure; R97.0 Elevated carcinoembryonic antigen [CEA]; Z85.038 Personal history of other malignant neoplasm of large intestine; D64.81 Anemia due to antineoplastic chemotherapy; D63.0 Anemia in neoplastic disease; T45.1X5A Adverse effect of antineoplastic and immunosuppressive drugs, initial encounter; L27.8 Dermatitis due to other substances taken internally; J41.0 Simple chronic bronchitis; J45.20 Mild intermittent asthma, uncomplicated; Z79.01 Long term (current) use of anticoagulants; N60.19 Diffuse cystic mastopathy of unspecified breast; I10 Essential (primary) hypertension; E03.8 Other specified hypothyroidism; Z92.21 Personal history of antineoplastic chemotherapy; E78.49 Other hyperlipidemia; D69.59 Other secondary thrombocytopenia; D70.1 Agranulocytosis secondary to cancer chemotherapy; D50.8 Other iron deficiency anemias ==

== ENCOUNTER 2019-04-10 08:43 | Outpatient (CLI) | payer OTHER | END 2019-04-10 13:41 | disposition home or self-care (01) | LOC: LAB 08:43 | DX: C34.91 Malignant neoplasm of unspecified part of right bronchus or lung (principal); C18.5 Malignant neoplasm of splenic flexure; R97.0 Elevated carcinoembryonic antigen [CEA]; Z85.038 Personal history of other malignant neoplasm of large intestine; D64.81 Anemia due to antineoplastic chemotherapy; D63.0 Anemia in neoplastic disease; T45.1X5A Adverse effect of antineoplastic and immunosuppressive drugs, initial encounter; L27.8 Dermatitis due to other substances taken internally; J41.0 Simple chronic bronchitis; J45.20 Mild intermittent asthma, uncomplicated; I48.21 Permanent atrial fibrillation; Z79.01 Long term (current) use of anticoagulants; N60.19 Diffuse cystic mastopathy of unspecified breast; I10 Essential (primary) hypertension; E03.8 Other specified hypothyroidism; Z92.21 Personal history of antineoplastic chemotherapy; E78.49 Other hyperlipidemia; D69.59 Other secondary thrombocytopenia; D70.1 Agranulocytosis secondary to cancer chemotherapy; I47.1 Supraventricular tachycardia; I48.91 Unspecified atrial fibrillation; E04.2 Nontoxic multinodular goiter; K57.30 Diverticulosis of large intestine without perforation or abscess without bleeding; K80.20 Calculus of gallbladder without cholecystitis without obstruction; R80.8 Other proteinuria; R31.29 Other microscopic hematuria; C18.8 Malignant neoplasm of overlapping sites of colon; C34.90 Malignant neoplasm of unspecified part of unspecified bronchus or lung; M19.90 Unspecified osteoarthritis, unspecified site; M85.88 Other specified disorders of bone density and structure, other site; E55.9 Vitamin D deficiency, unspecified; Z93.3 Colostomy status; Z68.34 Body mass index [BMI] 34.0-34.9, adult; N39.0 Urinary tract infection, site not specified ==

== ENCOUNTER → 2019-05-22 09:40 | Outpatient (CLI) | payer OTHER | END | disposition home or self-care (01) | LOC: LAB 09:40 | DX: C34.91 Malignant neoplasm of unspecified part of right bronchus or lung (principal); C18.5 Malignant neoplasm of splenic flexure; R97.0 Elevated carcinoembryonic antigen [CEA]; Z85.038 Personal history of other malignant neoplasm of large intestine; D64.81 Anemia due to antineoplastic chemotherapy; D63.0 Anemia in neoplastic disease; T45.1X5A Adverse effect of antineoplastic and immunosuppressive drugs, initial encounter; L27.8 Dermatitis due to other substances taken internally; J41.0 Simple chronic bronchitis; J45.20 Mild intermittent asthma, uncomplicated; I48.20 Chronic atrial fibrillation, unspecified; Z79.01 Long term (current) use of anticoagulants; N60.11 Diffuse cystic mastopathy of right breast; N60.12 Diffuse cystic mastopathy of left breast; I10 Essential (primary) hypertension; E03.8 Other specified hypothyroidism; Z92.21 Personal history of antineoplastic chemotherapy; E78.49 Other hyperlipidemia; D69.59 Other secondary thrombocytopenia; D70.1 Agranulocytosis secondary to cancer chemotherapy ==

== ENCOUNTER 2019-07-08 07:42 | Outpatient (CLI) | payer OTHER | END 2019-07-08 08:00 | disposition home or self-care (01) | LOC: LAB 07:42 | DX: D50.8 Other iron deficiency anemias (principal); I10 Essential (primary) hypertension; R97.0 Elevated carcinoembryonic antigen [CEA]; R97.8 Other abnormal tumor markers; C34.91 Malignant neoplasm of unspecified part of right bronchus or lung; C18.5 Malignant neoplasm of splenic flexure; Z85.038 Personal history of other malignant neoplasm of large intestine; D64.81 Anemia due to antineoplastic chemotherapy; D63.0 Anemia in neoplastic disease; T45.1X5A Adverse effect of antineoplastic and immunosuppressive drugs, initial encounter; L27.9 Dermatitis due to unspecified substance taken internally; J41.0 Simple chronic bronchitis; J45.20 Mild intermittent asthma, uncomplicated; I48.20 Chronic atrial fibrillation, unspecified; Z79.01 Long term (current) use of anticoagulants; N60.19 Diffuse cystic mastopathy of unspecified breast; E03.8 Other specified hypothyroidism; Z92.21 Personal history of antineoplastic chemotherapy; E78.49 Other hyperlipidemia; D69.59 Other secondary thrombocytopenia; D70.1 Agranulocytosis secondary to cancer chemotherapy ==

== ENCOUNTER 2019-08-21 07:48 | Outpatient (CLI) | payer OTHER | END 2019-08-21 08:08 | disposition home or self-care (01) | LOC: LAB 07:48 | DX: D50.8 Other iron deficiency anemias (principal); I10 Essential (primary) hypertension; R97.0 Elevated carcinoembryonic antigen [CEA]; R97.8 Other abnormal tumor markers; C34.91 Malignant neoplasm of unspecified part of right bronchus or lung; C18.5 Malignant neoplasm of splenic flexure; Z85.038 Personal history of other malignant neoplasm of large intestine; D64.81 Anemia due to antineoplastic chemotherapy; D63.0 Anemia in neoplastic disease; T45.1X5A Adverse effect of antineoplastic and immunosuppressive drugs, initial encounter; L27.9 Dermatitis due to unspecified substance taken internally; J41.0 Simple chronic bronchitis; J45.998 Other asthma; I48.21 Permanent atrial fibrillation; Z79.01 Long term (current) use of anticoagulants; N60.19 Diffuse cystic mastopathy of unspecified breast; E03.8 Other specified hypothyroidism; Z92.21 Personal history of antineoplastic chemotherapy; E78.49 Other hyperlipidemia; D69.59 Other secondary thrombocytopenia; D70.1 Agranulocytosis secondary to cancer chemotherapy ==

== ENCOUNTER 2019-09-09 09:58 | Outpatient (CLI) | payer OTHER | END 2019-09-09 15:00 | disposition home or self-care (01) | LOC: LAB 09:58 | PROVIDERS: ATTEND Internal Medicine Hematology & Oncology | DX: D50.8 Other iron deficiency anemias (principal); I10 Essential (primary) hypertension; R97.0 Elevated carcinoembryonic antigen [CEA]; R97.8 Other abnormal tumor markers; C34.91 Malignant neoplasm of unspecified part of right bronchus or lung; C18.5 Malignant neoplasm of splenic flexure; Z85.038 Personal history of other malignant neoplasm of large intestine; D64.81 Anemia due to antineoplastic chemotherapy; D63.0 Anemia in neoplastic disease; T45.1X5A Adverse effect of antineoplastic and immunosuppressive drugs, initial encounter; L27.8 Dermatitis due to other substances taken internally; J41.0 Simple chronic bronchitis; J45.20 Mild intermittent asthma, uncomplicated; I48.20 Chronic atrial fibrillation, unspecified; Z79.01 Long term (current) use of anticoagulants; N60.19 Diffuse cystic mastopathy of unspecified breast; E03.8 Other specified hypothyroidism; Z92.21 Personal history of antineoplastic chemotherapy; E78.49 Other hyperlipidemia; D69.59 Other secondary thrombocytopenia; D70.1 Agranulocytosis secondary to cancer chemotherapy ==

== ENCOUNTER 2019-10-06 09:30 | Outpatient (CLI) | payer OTHER | END 2019-10-06 09:33 | disposition home or self-care (01) | LOC: LAB 09:30 | PROVIDERS: ATTEND Internal Medicine Hematology & Oncology | DX: D50.8 Other iron deficiency anemias (principal); I10 Essential (primary) hypertension; C34.91 Malignant neoplasm of unspecified part of right bronchus or lung; C18.5 Malignant neoplasm of splenic flexure; R97.0 Elevated carcinoembryonic antigen [CEA]; Z85.038 Personal history of other malignant neoplasm of large intestine; D64.81 Anemia due to antineoplastic chemotherapy; D63.0 Anemia in neoplastic disease; T45.1X5A Adverse effect of antineoplastic and immunosuppressive drugs, initial encounter; L27.9 Dermatitis due to unspecified substance taken internally; J41.0 Simple chronic bronchitis; J45.20 Mild intermittent asthma, uncomplicated; I48.21 Permanent atrial fibrillation; Z79.01 Long term (current) use of anticoagulants; N60.19 Diffuse cystic mastopathy of unspecified breast; E03.8 Other specified hypothyroidism; Z92.21 Personal history of antineoplastic chemotherapy; E78.49 Other hyperlipidemia; D69.59 Other secondary thrombocytopenia; D70.1 Agranulocytosis secondary to cancer chemotherapy ==

== ENCOUNTER 2019-10-09 09:24 | Outpatient (CLI) | payer OTHER | END 2019-10-09 09:56 | disposition home or self-care (01) | LOC: LAB 09:24 | PROVIDERS: ATTEND Internal Medicine Hematology & Oncology | DX: C34.91 Malignant neoplasm of unspecified part of right bronchus or lung (principal); C18.5 Malignant neoplasm of splenic flexure; R97.0 Elevated carcinoembryonic antigen [CEA]; Z85.038 Personal history of other malignant neoplasm of large intestine; D64.81 Anemia due to antineoplastic chemotherapy; D63.0 Anemia in neoplastic disease; T45.1X5A Adverse effect of antineoplastic and immunosuppressive drugs, initial encounter; L27.8 Dermatitis due to other substances taken internally; J41.0 Simple chronic bronchitis; J45.20 Mild intermittent asthma, uncomplicated; I48.20 Chronic atrial fibrillation, unspecified; Z79.01 Long term (current) use of anticoagulants; N60.19 Diffuse cystic mastopathy of unspecified breast; I10 Essential (primary) hypertension; E03.8 Other specified hypothyroidism; Z92.21 Personal history of antineoplastic chemotherapy; E78.49 Other hyperlipidemia; D69.59 Other secondary thrombocytopenia; D70.1 Agranulocytosis secondary to cancer chemotherapy ==

== ENCOUNTER 2019-10-13 08:45 | Outpatient (CLI) | payer OTHER | END 2019-10-13 08:53 | disposition home or self-care (01) | LOC: TOM 08:45 | PROVIDERS: ATTEND Internal Medicine Hematology & Oncology | DX: C18.5 Malignant neoplasm of splenic flexure (principal); Z85.038 Personal history of other malignant neoplasm of large intestine; C34.91 Malignant neoplasm of unspecified part of right bronchus or lung; R97.0 Elevated carcinoembryonic antigen [CEA]; D64.81 Anemia due to antineoplastic chemotherapy; D63.0 Anemia in neoplastic disease; T45.1X5A Adverse effect of antineoplastic and immunosuppressive drugs, initial encounter; L27.9 Dermatitis due to unspecified substance taken internally; J41.0 Simple chronic bronchitis; J45.20 Mild intermittent asthma, uncomplicated; I48.21 Permanent atrial fibrillation; Z79.01 Long term (current) use of anticoagulants; N60.19 Diffuse cystic mastopathy of unspecified breast; I10 Essential (primary) hypertension; E03.8 Other specified hypothyroidism; Z92.21 Personal history of antineoplastic chemotherapy; E78.49 Other hyperlipidemia; D69.59 Other secondary thrombocytopenia; D70.1 Agranulocytosis secondary to cancer chemotherapy | CPT/HCPCS: 71260; Q9965 ==

== ENCOUNTER → 2019-11-19 08:23 | Outpatient (CLI) | payer OTHER | END | disposition home or self-care (01) | LOC: LAB 08:23 | PROVIDERS: ATTEND Internal Medicine Hematology & Oncology | DX: D50.8 Other iron deficiency anemias (principal); I10 Essential (primary) hypertension; D51.8 Other vitamin B12 deficiency anemias; C34.91 Malignant neoplasm of unspecified part of right bronchus or lung; C18.5 Malignant neoplasm of splenic flexure; R97.0 Elevated carcinoembryonic antigen [CEA]; Z85.038 Personal history of other malignant neoplasm of large intestine; D64.81 Anemia due to antineoplastic chemotherapy; D63.0 Anemia in neoplastic disease; T45.1X5A Adverse effect of antineoplastic and immunosuppressive drugs, initial encounter; L27.9 Dermatitis due to unspecified substance taken internally; J41.0 Simple chronic bronchitis; J45.20 Mild intermittent asthma, uncomplicated; I48.20 Chronic atrial fibrillation, unspecified; Z79.01 Long term (current) use of anticoagulants; N60.19 Diffuse cystic mastopathy of unspecified breast; E03.8 Other specified hypothyroidism; Z92.21 Personal history of antineoplastic chemotherapy; E78.49 Other hyperlipidemia; D69.59 Other secondary thrombocytopenia; D70.1 Agranulocytosis secondary to cancer chemotherapy ==

== ENCOUNTER → 2019-12-11 08:37 | Outpatient (CLI) | payer OTHER | END | disposition home or self-care (01) | LOC: LAB 08:37 | PROVIDERS: ATTEND Internal Medicine Hematology & Oncology | DX: D50.8 Other iron deficiency anemias (principal); I10 Essential (primary) hypertension; R97.0 Elevated carcinoembryonic antigen [CEA]; R97.8 Other abnormal tumor markers; C34.91 Malignant neoplasm of unspecified part of right bronchus or lung; C18.5 Malignant neoplasm of splenic flexure; Z85.038 Personal history of other malignant neoplasm of large intestine; D64.81 Anemia due to antineoplastic chemotherapy; D63.0 Anemia in neoplastic disease; T45.1X5A Adverse effect of antineoplastic and immunosuppressive drugs, initial encounter; L27.8 Dermatitis due to other substances taken internally; J41.0 Simple chronic bronchitis; J45.20 Mild intermittent asthma, uncomplicated; I48.20 Chronic atrial fibrillation, unspecified; Z79.01 Long term (current) use of anticoagulants; N60.19 Diffuse cystic mastopathy of unspecified breast; E03.8 Other specified hypothyroidism; Z92.21 Personal history of antineoplastic chemotherapy; D69.59 Other secondary thrombocytopenia; D70.1 Agranulocytosis secondary to cancer chemotherapy ==

== ENCOUNTER 2020-07-18 09:53 | Inpatient (IN) | payer OTHER ==
[~2020-07-18] VITALS: Ht 121.9 cm; Wt 5.0 kg
[2020-07-22] MEDS ORDERED: LEVOTHYROXINE50 MCG (15:38)
[2020-07-22] MEDS ORDERED: PANTOPRAZOLE SO40 MG (15:38)
[2020-07-22] MEDS ORDERED: FLOVENT HFA12 G1 (15:39)
[2020-08-01] MEDS ORDERED: INTESTINEX680 M1 PO (09:33)
[2020-08-01] MEDS ORDERED: LEVSIN/SL0.125 MG SL (09:33)
== END 2020-08-01 15:08 | disposition home or self-care (01) | DRG 353 ==
LOC: ER 09:53 → SURH 19:20 → O/R 07-22 15:16 → ICU 07-23 18:34 → SURG 07-28 02:38
PROVIDERS: ADMIT Surgery; ATTEND Surgery
PROC: BW21ZZZ Computerized Tomography (CT Scan) of Abdomen and Pelvis (ICD-10-PCS; 2020-07-18)
PROC: 3E0F7GC Introduction of Other Therapeutic Substance into Respiratory Tract, Via Natural or Artificial Opening (ICD-10-PCS; 2020-07-20)
PROC: BW21YZZ Computerized Tomography (CT Scan) of Abdomen and Pelvis using Other Contrast (ICD-10-PCS; 2020-07-20)
PROC: 06H033Z Insertion of Infusion Device into Inferior Vena Cava, Percutaneous Approach (ICD-10-PCS; 2020-07-20)
PROC: 0JNC0ZZ Release Pelvic Region Subcutaneous Tissue and Fascia, Open Approach (ICD-10-PCS; 2020-07-21)
PROC: 0WUF0JZ Supplement Abdominal Wall with Synthetic Substitute, Open Approach (ICD-10-PCS; principal; 2020-07-21 15:00)
PROC: 4A12X4Z Monitoring of Cardiac Electrical Activity, External Approach (ICD-10-PCS; 2020-07-26)
PROC: B24BZZZ Ultrasonography of Heart with Aorta (ICD-10-PCS; 2020-07-27)
DX: K56.699 Other intestinal obstruction unspecified as to partial versus complete obstruction (principal); K43.1 Incisional hernia with gangrene; I48.20 Chronic atrial fibrillation, unspecified; N17.8 Other acute kidney failure; C34.90 Malignant neoplasm of unspecified part of unspecified bronchus or lung; I10 Essential (primary) hypertension; K56.2 Volvulus; K57.30 Diverticulosis of large intestine without perforation or abscess without bleeding; Z20.822 Contact with and (suspected) exposure to COVID-19; Z93.3 Colostomy status

== ENCOUNTER 2020-08-05 15:15 | Inpatient (IN) | payer OTHER ==
[~2020-08-05] VITALS: Ht 162.6 cm; Wt 84.8 kg
[~2020-08-05 15:15] MED LIST changes: +FLOVENT HFA12 G1; +INTESTINEX680 M1 PO; +LEVOTHYROXINE50 MCG; +LEVSIN/SL0.125 MG SL; +PANTOPRAZOLE SO40 MG
[2020-08-08] MEDS ORDERED: ENALAPRIL MALEAT5 MG (11:17)
[2020-08-08] MEDS ORDERED: FAMOTIDINE20 MG (11:17)
[2020-08-26] MEDS ORDERED: FLUCONAZOLE200 MG PO (12:49)
[2020-08-26] MEDS ORDERED: XARELTO20 MG PO (12:50)
[2020-08-26] MEDS ORDERED: CARDIZEM LA180 MG PO (12:50)
[2020-08-26] MEDS ORDERED: FAMOTIDINE20 MG PO (12:51)
[2020-08-26] MEDS ORDERED: INTESTINEX680 M1 PO (12:52)
[2020-08-26] MEDS ORDERED: LEVOTHYROXINE50 MCG PO (12:52)
[2020-08-26] MEDS ORDERED: Neurin-Sl Tablet Sl SL (12:53)
[2020-08-26] MEDS ORDERED: B Complex CAPSULE PO (12:54)
== END 2020-08-26 16:36 | disposition home health service (06) | DRG 863 ==
LOC: ER 15:15 → SURH 17:33 → SEC-K 17:33 → SURG 17:33 → SURH 08-06 14:07
PROVIDERS: ADMIT Internal Medicine Geriatric Medicine; ATTEND Internal Medicine Geriatric Medicine
PROC: 02HV33Z Insertion of Infusion Device into Superior Vena Cava, Percutaneous Approach (ICD-10-PCS; 2020-08-06)
PROC: 3E0F7SF Introduction of Other Gas into Respiratory Tract, Via Natural or Artificial Opening (ICD-10-PCS; 2020-08-06)
PROC: 4A12X4Z Monitoring of Cardiac Electrical Activity, External Approach (ICD-10-PCS; 2020-08-06)
PROC: 8E0ZXY6 Isolation (ICD-10-PCS; principal; 2020-08-07)
PROC: 0W9F30Z Drainage of Abdominal Wall with Drainage Device, Percutaneous Approach (ICD-10-PCS; 2020-08-13)
DX: T81.49XA Infection following a procedure, other surgical site, initial encounter (principal); L03.311 Cellulitis of abdominal wall; I48.20 Chronic atrial fibrillation, unspecified; Z16.12 Extended spectrum beta lactamase (ESBL) resistance; J98.11 Atelectasis; N39.0 Urinary tract infection, site not specified; J43.8 Other emphysema; E03.8 Other specified hypothyroidism; Z93.3 Colostomy status; Z20.822 Contact with and (suspected) exposure to COVID-19; B96.29 Other Escherichia coli [E. coli] as the cause of diseases classified elsewhere; Z85.038 Personal history of other malignant neoplasm of large intestine; Z85.118 Personal history of other malignant neoplasm of bronchus and lung; R09.02 Hypoxemia; Z79.01 Long term (current) use of anticoagulants

== ENCOUNTER → 2020-10-06 09:36 | Outpatient (CLI) | payer OTHER ==
[~2020-10-06 09:36] MED LIST changes: +B Complex CAPSULE PO; +CARDIZEM LA180 MG PO; +ENALAPRIL MALEAT5 MG; +FAMOTIDINE20 MG; +FAMOTIDINE20 MG PO; +FLUCONAZOLE200 MG PO; +LEVOTHYROXINE50 MCG PO; +Neurin-Sl Tablet Sl SL
== END | disposition home or self-care (01) ==
LOC: LAB 09:36
PROVIDERS: ATTEND Internal Medicine Hematology & Oncology
DX: K76.89 Other specified diseases of liver (principal); C34.91 Malignant neoplasm of unspecified part of right bronchus or lung; C18.5 Malignant neoplasm of splenic flexure; R97.0 Elevated carcinoembryonic antigen [CEA]; Z85.038 Personal history of other malignant neoplasm of large intestine; D64.81 Anemia due to antineoplastic chemotherapy; D63.0 Anemia in neoplastic disease; T45.1X5A Adverse effect of antineoplastic and immunosuppressive drugs, initial encounter; L27.8 Dermatitis due to other substances taken internally; J41.0 Simple chronic bronchitis; J45.20 Mild intermittent asthma, uncomplicated; Z79.01 Long term (current) use of anticoagulants; N60.19 Diffuse cystic mastopathy of unspecified breast; I10 Essential (primary) hypertension; E03.8 Other specified hypothyroidism; Z92.21 Personal history of antineoplastic chemotherapy; E78.49 Other hyperlipidemia; D69.59 Other secondary thrombocytopenia; D70.1 Agranulocytosis secondary to cancer chemotherapy; R97.8 Other abnormal tumor markers; D50.8 Other iron deficiency anemias; R74.02 Elevation of levels of lactic acid dehydrogenase [LDH]

== ENCOUNTER → 2020-10-21 06:39 | Outpatient (CLI) | payer OTHER | END | disposition home or self-care (01) | LOC: LAB 06:39 | PROVIDERS: ATTEND Internal Medicine Hematology & Oncology | DX: D50.8 Other iron deficiency anemias (principal); I10 Essential (primary) hypertension; R74.02 Elevation of levels of lactic acid dehydrogenase [LDH]; K76.89 Other specified diseases of liver; R97.0 Elevated carcinoembryonic antigen [CEA]; R97.8 Other abnormal tumor markers; C34.91 Malignant neoplasm of unspecified part of right bronchus or lung; C18.5 Malignant neoplasm of splenic flexure; Z85.038 Personal history of other malignant neoplasm of large intestine; D64.81 Anemia due to antineoplastic chemotherapy; D63.0 Anemia in neoplastic disease; T45.1X5A Adverse effect of antineoplastic and immunosuppressive drugs, initial encounter; L27.9 Dermatitis due to unspecified substance taken internally; J41.0 Simple chronic bronchitis; J45.998 Other asthma; Z79.01 Long term (current) use of anticoagulants; E03.8 Other specified hypothyroidism; E78.49 Other hyperlipidemia; D69.59 Other secondary thrombocytopenia; D70.1 Agranulocytosis secondary to cancer chemotherapy ==

== ENCOUNTER → 2020-12-23 09:10 | Outpatient (CLI) | payer OTHER | END | disposition home or self-care (01) | LOC: LAB 09:10 | PROVIDERS: ATTEND Internal Medicine Hematology & Oncology | DX: I10 Essential (primary) hypertension (principal); D50.8 Other iron deficiency anemias; R97.0 Elevated carcinoembryonic antigen [CEA]; R97.8 Other abnormal tumor markers; R74.02 Elevation of levels of lactic acid dehydrogenase [LDH]; K76.89 Other specified diseases of liver; C34.91 Malignant neoplasm of unspecified part of right bronchus or lung; C18.5 Malignant neoplasm of splenic flexure; Z85.038 Personal history of other malignant neoplasm of large intestine; D64.81 Anemia due to antineoplastic chemotherapy; D63.0 Anemia in neoplastic disease; T45.1X5A Adverse effect of antineoplastic and immunosuppressive drugs, initial encounter; L27.8 Dermatitis due to other substances taken internally; J41.0 Simple chronic bronchitis; J45.20 Mild intermittent asthma, uncomplicated; I48.20 Chronic atrial fibrillation, unspecified; Z79.01 Long term (current) use of anticoagulants; N60.19 Diffuse cystic mastopathy of unspecified breast; E03.8 Other specified hypothyroidism; Z92.21 Personal history of antineoplastic chemotherapy; E78.5 Hyperlipidemia, unspecified; D69.59 Other secondary thrombocytopenia; D70.1 Agranulocytosis secondary to cancer chemotherapy ==

== ENCOUNTER → 2021-01-20 08:45 | Outpatient (CLI) | payer OTHER | END | disposition home or self-care (01) | LOC: LAB 08:45 | PROVIDERS: ATTEND Internal Medicine Hematology & Oncology | DX: D50.8 Other iron deficiency anemias (principal); I10 Essential (primary) hypertension; R74.02 Elevation of levels of lactic acid dehydrogenase [LDH]; K76.89 Other specified diseases of liver; R97.0 Elevated carcinoembryonic antigen [CEA]; R97.8 Other abnormal tumor markers; C34.91 Malignant neoplasm of unspecified part of right bronchus or lung; C18.5 Malignant neoplasm of splenic flexure; Z85.038 Personal history of other malignant neoplasm of large intestine; D64.81 Anemia due to antineoplastic chemotherapy; D63.0 Anemia in neoplastic disease; T45.1X5A Adverse effect of antineoplastic and immunosuppressive drugs, initial encounter; L27.9 Dermatitis due to unspecified substance taken internally; J41.0 Simple chronic bronchitis; J45.20 Mild intermittent asthma, uncomplicated; I48.19 Other persistent atrial fibrillation; Z79.01 Long term (current) use of anticoagulants; N60.19 Diffuse cystic mastopathy of unspecified breast; E03.8 Other specified hypothyroidism; Z92.21 Personal history of antineoplastic chemotherapy; E78.49 Other hyperlipidemia; D69.59 Other secondary thrombocytopenia; D70.1 Agranulocytosis secondary to cancer chemotherapy ==

== ENCOUNTER 2021-03-01 08:40 | Outpatient (CLI) | payer OTHER | END 2021-03-01 08:42 | disposition home or self-care (01) | LOC: LAB 08:40 | PROVIDERS: ATTEND Internal Medicine Hematology & Oncology | DX: I10 Essential (primary) hypertension (principal); I47.1 Supraventricular tachycardia; I48.91 Unspecified atrial fibrillation; E04.2 Nontoxic multinodular goiter; E03.8 Other specified hypothyroidism; R73.01 Impaired fasting glucose; K57.30 Diverticulosis of large intestine without perforation or abscess without bleeding; K80.20 Calculus of gallbladder without cholecystitis without obstruction; R80.8 Other proteinuria; R31.29 Other microscopic hematuria; D50.8 Other iron deficiency anemias; D72.829 Elevated white blood cell count, unspecified; C18.9 Malignant neoplasm of colon, unspecified; C34.90 Malignant neoplasm of unspecified part of unspecified bronchus or lung; M19.90 Unspecified osteoarthritis, unspecified site; M47.896 Other spondylosis, lumbar region; M85.89 Other specified disorders of bone density and structure, multiple sites; J44.9 Chronic obstructive pulmonary disease, unspecified; E83.42 Hypomagnesemia; Z93.3 Colostomy status; Z79.01 Long term (current) use of anticoagulants; Z68.33 Body mass index [BMI] 33.0-33.9, adult; E53.8 Deficiency of other specified B group vitamins; R74.02 Elevation of levels of lactic acid dehydrogenase [LDH]; K76.89 Other specified diseases of liver; R97.0 Elevated carcinoembryonic antigen [CEA]; R97.8 Other abnormal tumor markers; C34.91 Malignant neoplasm of unspecified part of right bronchus or lung; C18.5 Malignant neoplasm of splenic flexure; Z85.038 Personal history of other malignant neoplasm of large intestine; D64.81 Anemia due to antineoplastic chemotherapy; T45.1X5A Adverse effect of antineoplastic and immunosuppressive drugs, initial encounter; L27.9 Dermatitis due to unspecified substance taken internally; J45.20 Mild intermittent asthma, uncomplicated; N60.19 Diffuse cystic mastopathy of unspecified breast; Z92.21 Personal history of antineoplastic chemotherapy; E78.49 Other hyperlipidemia; D69.59 Other secondary thrombocytopenia ==

== ENCOUNTER → 2021-03-17 06:34 | Outpatient (CLI) | payer OTHER | END | disposition home or self-care (01) | LOC: LAB 06:34 | PROVIDERS: ATTEND Internal Medicine Hematology & Oncology | DX: I10 Essential (primary) hypertension (principal); D50.8 Other iron deficiency anemias; R74.02 Elevation of levels of lactic acid dehydrogenase [LDH]; K76.89 Other specified diseases of liver; R97.0 Elevated carcinoembryonic antigen [CEA]; R97.8 Other abnormal tumor markers; C34.91 Malignant neoplasm of unspecified part of right bronchus or lung; C18.5 Malignant neoplasm of splenic flexure; Z85.038 Personal history of other malignant neoplasm of large intestine; D64.81 Anemia due to antineoplastic chemotherapy; D63.0 Anemia in neoplastic disease; T45.1X5A Adverse effect of antineoplastic and immunosuppressive drugs, initial encounter; L27.9 Dermatitis due to unspecified substance taken internally; J41.0 Simple chronic bronchitis; J45.20 Mild intermittent asthma, uncomplicated; I48.21 Permanent atrial fibrillation; Z79.01 Long term (current) use of anticoagulants; N60.19 Diffuse cystic mastopathy of unspecified breast; E03.8 Other specified hypothyroidism; Z92.21 Personal history of antineoplastic chemotherapy; E78.5 Hyperlipidemia, unspecified; D69.59 Other secondary thrombocytopenia; D70.1 Agranulocytosis secondary to cancer chemotherapy ==

== ENCOUNTER 2021-04-21 06:55 | Outpatient (CLI) | payer OTHER | END 2021-04-21 06:58 | disposition home or self-care (01) | LOC: LAB 06:55 | PROVIDERS: ATTEND Internal Medicine Hematology & Oncology | DX: D50.8 Other iron deficiency anemias (principal); I10 Essential (primary) hypertension; R74.02 Elevation of levels of lactic acid dehydrogenase [LDH]; K76.89 Other specified diseases of liver; R97.0 Elevated carcinoembryonic antigen [CEA]; R97.8 Other abnormal tumor markers; C34.91 Malignant neoplasm of unspecified part of right bronchus or lung; C18.5 Malignant neoplasm of splenic flexure; Z85.038 Personal history of other malignant neoplasm of large intestine; D64.81 Anemia due to antineoplastic chemotherapy; D70.1 Agranulocytosis secondary to cancer chemotherapy; E78.49 Other hyperlipidemia; Z92.21 Personal history of antineoplastic chemotherapy; E03.8 Other specified hypothyroidism; Z79.01 Long term (current) use of anticoagulants ==

== ENCOUNTER 2021-05-10 06:15 | Outpatient (CLI) | payer OTHER | END 2021-05-10 06:16 | disposition home or self-care (01) | LOC: LAB 06:15 | PROVIDERS: ATTEND Internal Medicine Hematology & Oncology | DX: D50.8 Other iron deficiency anemias (principal); I10 Essential (primary) hypertension; R74.02 Elevation of levels of lactic acid dehydrogenase [LDH]; K76.89 Other specified diseases of liver; D51.8 Other vitamin B12 deficiency anemias; R97.0 Elevated carcinoembryonic antigen [CEA]; R97.8 Other abnormal tumor markers ==

== ENCOUNTER 2021-05-26 12:02 | Outpatient (CLI) | payer OTHER | END 2021-05-26 14:22 | disposition home or self-care (01) | LOC: RX STUDY 12:02 | PROVIDERS: ATTEND Internal Medicine Hematology & Oncology | DX: T85.618A Breakdown (mechanical) of other specified internal prosthetic devices, implants and grafts, initial encounter (principal) ==

== ENCOUNTER 2021-07-28 06:16 | Outpatient (CLI) | payer OTHER | END 2021-07-28 06:23 | disposition home or self-care (01) | LOC: LAB 06:16 | PROVIDERS: ATTEND Internal Medicine | DX: E04.2 Nontoxic multinodular goiter (principal); I47.1 Supraventricular tachycardia; I48.91 Unspecified atrial fibrillation; E03.8 Other specified hypothyroidism; R73.01 Impaired fasting glucose; K57.30 Diverticulosis of large intestine without perforation or abscess without bleeding; K80.20 Calculus of gallbladder without cholecystitis without obstruction; R80.9 Proteinuria, unspecified; R31.9 Hematuria, unspecified; D50.8 Other iron deficiency anemias; D72.829 Elevated white blood cell count, unspecified; C18.9 Malignant neoplasm of colon, unspecified; C34.90 Malignant neoplasm of unspecified part of unspecified bronchus or lung; M19.90 Unspecified osteoarthritis, unspecified site; M47.896 Other spondylosis, lumbar region; M85.89 Other specified disorders of bone density and structure, multiple sites; J44.9 Chronic obstructive pulmonary disease, unspecified; T81.31XS Disruption of external operation (surgical) wound, not elsewhere classified, sequela; E55.9 Vitamin D deficiency, unspecified; Z93.3 Colostomy status; Z79.01 Long term (current) use of anticoagulants; Z68.33 Body mass index [BMI] 33.0-33.9, adult; N39.0 Urinary tract infection, site not specified; E53.8 Deficiency of other specified B group vitamins; N18.30 Chronic kidney disease, stage 3 unspecified ==

== ENCOUNTER 2021-08-10 09:45 | Emergency (ER) | payer OTHER ==
[~2021-08-10] VITALS: Ht 162.6 cm; Wt 86.2 kg
== END 2021-08-10 14:39 | disposition home or self-care (01) ==
LOC: ER 09:45
DX: C34.90 Malignant neoplasm of unspecified part of unspecified bronchus or lung (principal); Z88.2 Allergy status to sulfonamides

== ENCOUNTER 2021-08-19 18:38 | Emergency (ER) | payer OTHER ==
[~2021-08-19] VITALS: Ht 162.6 cm; Wt 78.9 kg
[2021-08-20] MEDS ORDERED: LEVALBUTER0.63 MG/3 IH (00:04)
[2021-08-20] MEDS ORDERED: BUDESONIDE0.5 MG/2 M IH (00:04)
[2021-08-20] MEDS ORDERED: IPRATROPIU0.2 MG/1 M IH (00:04)
== END 2021-08-20 00:15 | disposition home or self-care (01) ==
LOC: ER 18:38
DX: C34.90 Malignant neoplasm of unspecified part of unspecified bronchus or lung (principal); R06.02 Shortness of breath; R09.02 Hypoxemia; J43.9 Emphysema, unspecified; E03.9 Hypothyroidism, unspecified; Z72.0 Tobacco use; Z88.2 Allergy status to sulfonamides

== ENCOUNTER 2021-08-23 10:43 | Emergency (ER) | payer OTHER ==
[~2021-08-23] VITALS: Ht 162.6 cm; Wt 78.9 kg
[~2021-08-23 10:43] MED LIST changes: +BUDESONIDE0.5 MG/2 M IH; +IPRATROPIU0.2 MG/1 M IH; +LEVALBUTER0.63 MG/3 IH
[2021-08-23] MEDS ORDERED: ZITHROMAX200 MG PO (14:24)
== END 2021-08-23 14:48 | disposition home or self-care (01) ==
LOC: ER 10:43
DX: C34.90 Malignant neoplasm of unspecified part of unspecified bronchus or lung (principal); Z88.2 Allergy status to sulfonamides; Z20.822 Contact with and (suspected) exposure to COVID-19

== ENCOUNTER 2021-08-30 15:15 | Inpatient (IN) | payer OTHER ==
[~2021-08-30] VITALS: Ht 162.6 cm; Wt 78.9 kg
[~2021-08-30 15:15] MED LIST changes: +ZITHROMAX200 MG PO
[2021-09-05] MEDS ORDERED: OMEPRAZOLE40 MG (11:16)
[2021-09-05] MEDS ORDERED: NIVOLUMAB (11:17)
[2021-09-05] MEDS ORDERED: METOCLOPRAM5 MG/1 ML (11:17)
[2021-09-05] MEDS ORDERED: DIPHENHYDR50 MG/1 M1 (11:17)
[2021-09-05] MEDS ORDERED: FAMOTIDINE20 MG/2 M1 (11:17)
[2021-09-05] MEDS ORDERED: ONDANSETRON4 MG/2 M5 (11:17)
[2021-09-05] MEDS ORDERED: CYANOCOBAL1000 MCG/1 (11:18)
[2021-09-05] MEDS ORDERED: INTEGRA PLUS C1 EAC1 (11:18)
== END 2021-09-08 15:38 | disposition expired | DRG 207 ==
LOC: ER 15:15 → ICU-2 08-31 10:20 → ICU 09-01 02:02
PROVIDERS: ADMIT Internal Medicine; ATTEND Internal Medicine
PROC: 5A0945A Assistance with Respiratory Ventilation, 24-96 Consecutive Hours, High Flow/Velocity Cannula (ICD-10-PCS; 2021-08-31)
PROC: 5A1955Z Respiratory Ventilation, Greater than 96 Consecutive Hours (ICD-10-PCS; principal; 2021-09-01)
PROC: 02HV33Z Insertion of Infusion Device into Superior Vena Cava, Percutaneous Approach (ICD-10-PCS; 2021-09-03)
PROC: 3E0436Z Introduction of Nutritional Substance into Central Vein, Percutaneous Approach (ICD-10-PCS; 2021-09-03)
DX: J44.1 Chronic obstructive pulmonary disease with (acute) exacerbation (principal); C34.11 Malignant neoplasm of upper lobe, right bronchus or lung; C78.02 Secondary malignant neoplasm of left lung; C79.31 Secondary malignant neoplasm of brain; J45.901 Unspecified asthma with (acute) exacerbation; N17.8 Other acute kidney failure; R09.02 Hypoxemia; I48.91 Unspecified atrial fibrillation; I11.9 Hypertensive heart disease without heart failure; R41.82 Altered mental status, unspecified; Z93.3 Colostomy status; Z79.01 Long term (current) use of anticoagulants; Z85.038 Personal history of other malignant neoplasm of large intestine; Z66 Do not resuscitate
CPT/HCPCS: 70551